=== PATIENT | female | born 1960 | race Caucasian/White ===

== ENCOUNTER 2022-09-10 06:33 | Emergency (ER) | payer MEDICARE, MEDICAID, SELFPAY ==
[2022-09-10] VITALS (12 sets, daily range): BP systolic 91–149; BP diastolic 67–89; PULSE 56–68; RESP 13–27; TEMP 36.8; O2SAT 73–100; BMI 37.0
--- NOTE | 2022-09-10 06:45 | ECG_ITS ---
The [facility] Test Date: 2022-09-10 Pat Name: Myrna Beverly Department: Room: - Gender: Female Cardiovascular Physician Assistant: : 1960 Requested By: Calin Hess Order Number: [id number] Reading MD: NATALIA GRADY Measurements Intervals [place] Rate: 69 P: 28 [place]: 148 QRS: -26 QRSD: 90 T: 106 QT: 386 QTc: 404 Interpretive Statements 1100 Sinus rhythm 5234 Left ventricular hypertrophy with repolarization abnormality 7202 Moderate left axis deviation 9150 abnormal ECG No previous ECG available for comparison Electronically Signed On 09-14-2022 7:41:06 EDT by NATALIA GRADY
--- NOTE | 2022-09-10 06:45 | CT_ITS ---
The [address] [address] Patient Name: PAULO CANTU MRN: [id number] date: 1960 Sex: F Assigned Patient Location: ER Current Patient Location: ED.MAIN Accession/Order Number: [id number] Exam Date: 09/10/2022 06:45 Report Date: 09/10/2022 06:57 At the request of: POOL KOLB Procedure: CT stroke head/brain wo con NONCONTRAST HEAD CT COMPARISON: Head CT 03/12/2019. CLINICAL HISTORY: Facial droop. TECHNIQUE: Routine noncontrast images of the brain obtained. CT examination of the head without IV contrast. Dose reduction techniques were achieved by using: automated exposure control and/or adjustment of mA and /or kV according to patient size and/or use of iterative reconstruction technique. FINDINGS: Paranasal sinuses and mastoid air cells are clear. Intraorbital contents are unremarkable. No acute bony abnormality. Intracranially, there is no evidence of hemorrhage, mass effect, or midline shift. Profound brain atrophy and extensive areas of cortical and periventricular ischemic change with previous large areas of presumed infarction in the left occipital lobe and right parietal lobe. Dense carotid calcifications.. IMPRESSION: No acute intracranial hemorrhage. Profound atrophy and extensive chronic ischemic changes are noted, overall stable exam since 2018. Electronically authenticated by: MALIA JULIEN Date: 09/10/2022 06:57
[2022-09-10 07:13] LABS: Glucometer 98 mg/dL (74-106)
[2022-09-10 07:15] LABS: Basophils Absolute Auto 0.1 10^3/uL (0.0-0.1); Basophils Percent Auto 0.7 % (0.2-2.0); Eosinophils Absolute Auto 0.1 10^3/uL (0.0-0.7); Eosinophils Percent Auto 0.6 % (0.9-7.0); Hematocrit 46.6 % (36.0-48.0); Hemoglobin 16.1 g/dL (12.0-16.0); Immature Granulocytes Abs Auto 0.04 10^3/uL (0.00-0.03); Immature Granulocytes Pct Auto 0.5 % (0.0-0.5); Lymphocytes Absolute Auto 0.7 10^3/uL (1.2-3.8); Lymphocytes Percent Auto 7.8 % (20.5-60.0); Mean Corpuscular HGB Conc 34.5 g/dL (29.9-35.2); Mean Corpuscular Hemoglobin 36.2 pg (26.7-34.0); Mean Corpuscular Volume 104.7 fL (81.0-99.0); Mean Platelet Volume 10.4 fL (9.5-13.5); Monocytes Absolute Auto 0.7 10^3/uL (0.3-0.8); Monocytes Percent Auto 7.5 % (1.7-12.0); Neutrophils Absolute Auto 7.3 10^3/uL (1.4-6.5); Neutrophils Percent Auto 82.9 % (43.0-75.0); Platelet Count 227 10^3/uL (150-450); Red Blood Count 4.45 10^6/uL (4.20-5.40); Red Cell Distribution Width 14.6 % (11.0-15.0); White Blood Count 8.8 10^3/uL (4.0-11.0)
--- NOTE | 2022-09-10 07:17 | XR_ITS ---
The [address] [address] Patient Name: PAULO CANTU MRN: [id number] date: 1960 Sex: F Assigned Patient Location: ER Current Patient Location: ER Accession/Order Number: [id number] Exam Date: 09/10/2022 07:50 Report Date: 09/10/2022 08:11 At the request of: DARYA OLSON Procedure: XR chest 1V EXAM: Chest x-ray HISTORY: . DYSPNEA . COMPARISON: 09/13/2021 TECHNIQUE: Single view of the chest. FINDINGS: This is an expiratory chest. Heart is mildly enlarged. Vascularity is unremarkable. There is atelectasis and or infiltrate in the left lung base along with a small left effusion. There is a small amount of atelectasis in the right lung base. Impression: 1. Expiratory chest. 2. Cardiac enlargement. 3. Atelectasis and or infiltrate in the left lower lobe along with a small left effusion. 4. Small amount of atelectasis in the right lung base. Electronically authenticated by: RICHARD WAYNE Date: 09/10/2022 08:11
--- NOTE | 2022-09-10 07:19 | ED_ITS ---
HPI - General Adult General Chief complaint: Neuro Symptoms/Deficit Stated complaint: CVA SYMPTOMS Time Seen by Provider: 09/10/22 06:45 Source: medical record and unable to obtain Mode of arrival: ambulance Limitations: language barrier, altered mental status and physical limitation History of Present Illness HPI narrative: Patient brought in via EMS from the [facility] with a complaint of shortness of breath. Patient has a history of Down syndrome and has right hemiplegia from a CVA for which she is at the [facility]. This states this morning she was found at 1 in the morning with vomitus on her face. They stated she was having difficulty breathing they give her 1 breathing treatment and called EMS. When EMS arrived he stated that they noted some facial drooping so the patient was taken to CT scan. Patient is not able to provide a history. Family Who is a nurse practitioner and POA arrives and states the patient is at her baseline. She does not have any signs of an acute CVA.States the patient does not exhibit any facial drooping and she has right-sided hemiplegia from the previous CVA. She also states that she did is not uncommon for the patient to vomit since she has an esophageal stricture that she was told can no longer be dilated. The patient is on a soft pur?ed diet. She states she was told yesterday that the patient had a fever and she asked to do the workup of x-ray and urinalysis at the facility presents she vomited they decided to send her here. The patient denies any abdominal pain. She is satting 92 percent, later nasal cannula. Related Data Home Medications Medication Instructions Recorded Confirmed cefdinir 250 mg/5 mL oral 300 mg PO Q12H 09/10/22 09/10/22 suspension Allergies Allergy/AdvReac Type Severity Reaction Status Date / Time atorvastatin [From Lipitor] Allergy Verified 09/10/22 06:57 Review of Systems ROS Status of ROS 10 or more systems reviewed and unremarkable except as noted in history and below Exam Narrative Exam Narrative: Nurses notes and vital signs reviewed and patient sat 92% on 1 L nc. General: Response to verbal stimuli, opens her eyes, answers simple questions, in no apparent distress. Skin: Warm, dry, no pallor noted. Neck and lower extremity intertriginous yeast rash, left gluteal pressure ulcer, no exudate. Head: Normocephalic, atraumatic. Neck: Supple, non-tender. Eye: Pupils are equal, round and EOMI. No scleral icterus. Ears, Nose, Mouth, and Throat: TM clear, no posterior oropharynx erythema or nasal mucosal hypertrophy, uvula is mid-line Oral mucosa is dry Cardiovascular: Regular Rate and Rhythm without murmur, gallop or rub. Respiratory: No accessory muscle use or respiratory distress. Lungs occasional bilateral rhonchi Chest Wall: no tenderness Back: No midline thoracic or lumbar vertebral tenderness. No CVA tenderness Musculoskeletal: normal ROM, no calf or popliteal tenderness, no lower extremity edema/swelling GI: Abdomen is soft, non-distended. Normal bowel sounds. No tenderness to palpation. No rebound, guarding, or rigidity noted. Neurological: A&O x1. Right-sided hemiparesis, no facial drooping, at baseline Psychiatric: Cooperative Constitutional Vital Signs - 24 hr 09/10/22 06:45 09/10/22 06:45 09/10/22 06:46 Temperature 98.2 F Pulse Rate Pulse Rate [Monitor] 68 Respiratory Rate 22 Blood Pressure 91/67 Blood Pressure [Right Arm] 149/89 H Pulse Oximetry 96 92 L 96 Oxygen Delivery Method Nasal Cannula Nasal Cannula Oxygen Delivery Flow Rate 0.5 2 09/10/22 06:46 09/10/22 06:49 09/10/22 06:52 Temperature Pulse Rate 67 66 Pulse Rate [Monitor] Respiratory Rate 18 23 Blood Pressure 149/89 H 141/67 H Blood Pressure [Right Arm] Pulse Oximetry 96 96 96 Oxygen Delivery Method Oxygen Delivery Flow Rate 09/10/22 07:00 09/10/22 07:31 09/10/22 08:00 Temperature Pulse Rate 61 61 58 L Pulse Rate [Monitor] Respiratory Rate 18 20 16 Blood Pressure 144/84 H 126/68 H 127/77 H Blood Pressure [Right Arm] Pulse Oximetry 96 85 L 98 Oxygen Delivery Method Oxygen Delivery Flow Rate 09/10/22 08:15 09/10/22 08:30 09/10/22 09:00 Temperature Pulse Rate 57 L 56 L 63 Pulse Rate [Monitor] Respiratory Rate 27 H 19 21 Blood Pressure 117/69 126/73 H 135/69 H Blood Pressure [Right Arm] Pulse Oximetry 73 L 100 Oxygen Delivery Method Oxygen Delivery Flow Rate 09/10/22 09:00 09/10/22 09:30 09/10/22 09:34 Temperature Pulse Rate 62 59 L Pulse Rate [Monitor] Respiratory Rate 17 13 Blood Pressure 135/69 H 145/67 H Blood Pressure [Right Arm] Pulse Oximetry 94 L 97 Oxygen Delivery Method Room Air Oxygen Delivery Flow Rate Course Vital Signs Vital signs: Vital Signs Temperature 98.2 F 09/10/22 06:45 Pulse Rate 68 09/10/22 06:45 Respiratory Rate 22 09/10/22 06:45 Blood Pressure 149/89 H 09/10/22 06:45 Pulse Oximetry 96 09/10/22 06:45 Oxygen Delivery Method Nasal Cannula 09/10/22 06:45 Oxygen Delivery Flow Rate 0.5 09/10/22 06:45 Temperature 98.2 F 09/10/22 06:45 Pulse Rate 59 L 09/10/22 09:30 Respiratory Rate 13 09/10/22 09:30 Blood Pressure 145/67 H 09/10/22 09:30 Pulse Oximetry 97 09/10/22 09:34 Oxygen Delivery Method Room Air 09/10/22 09:34 Oxygen Delivery Flow Rate 2 09/10/22 06:45 Medical Decision Making MDM Narrative Medical decision making narrative: Patient was given IV fluids, and Rocephin. Patient is at her baseline. Family states the patient is a DNRCC arrest. She has been on oxygen before at the [facility]. She also uses a BiPAP at times. Patient states she does not want to use that. pt is able to receive antibiotics and oxygen at the [facility]. She will be discharged back to the [facility]. Will be given a prescription for Omnicef. At this time the patient is without objective evidence of an acute process requiring hospitalization or inpatient management. The patient has remained hemodynamically stable. No additional indication for emergent studies at this time. I answered all questions. Discussed discharge instructions including s tandard anticipatory guidance and what should prompt a return to the emergency department, including if they get worse are not getting better or develops any new or concerning symptoms. I've given them specific time frame in which to follow-up, and who to follow-up with. The patient demonstrates understanding. Patient is nontoxic and stable for discharge with outpatient follow-up. This note was created with the assistance of a speech recognition program. Although the intention is to generate documents that actually reflects the content of the visit, no guarantees can be provided that every mistake has been identified and corrected by editing. Medical Records Medical records reviewed: Yes I reviewed the patient's medical records Lab Data Lab results reviewed: Yes I reviewed the patient's lab results Labs: Lab Results 09/10/22 09/10/22 09/10/22 Range/Units 06:58 07:05 08:45 WBC 8.8 (4.0-11.0) 10^3/uL RBC 4.45 (4.20-5.40) 10^6/uL Hgb 16.1 H (12.0-16.0) g/dL Hct 46.6 (36.0-48.0) % MCV 104.7 H (81.0-99.0) fL MCH 36.2 H (26.7-34.0) pg MCHC 34.5 (29.9-35.2) g/dL RDW 14.6 (11.0-15.0) % Plt Count 227 (150-450) 10^3/uL MPV 10.4 (9.5-13.5) fL Neut % (Auto) 82.9 H (43.0-75.0) % Lymph % (Auto) 7.8 L (20.5-60.0) % [place] % (Auto) 7.5 (1.7-12.0) % Eos % (Auto) 0.6 L (0.9-7.0) % Baso % (Auto) 0.7 (0.2-2.0) % Neut # (Auto) 7.3 H (1.4-6.5) 10^3/uL Lymph # (Auto) 0.7 L (1.2-3.8) 10^3/uL [place] # (Auto) 0.7 (0.3-0.8) 10^3/uL Eos # (Auto) 0.1 (0.0-0.7) 10^3/uL Baso # (Auto) 0.1 (0.0-0.1) 10^3/uL Abs Immat Gran (auto) 0.04 H (0.00-0.03) 10^3/uL Imm/Tot Granulo (auto) 0.5 (0.0-0.5) % PT 11.2 (9.0-11.6) sec INR 1.06 APTT 26.7 (22.3-36.2) sec Sodium 145 (136-145) mmol/L Potassium 4.0 (3.5-5.1) mmol/L Chloride 113 H (98-107) mmol/L Carbon Dioxide 24.4 (21.0-32.0) mmol/L Anion Gap 11.6 BUN 24.0 H (7.0-18.0) mg/dL Creatinine 1.39 H (0.55-1.02) mg/dL Est GFR ( Amer) 46 L (>=60) Est GFR (Non-Af Amer) 38 L (>=60) BUN/Creatinine Ratio 17.3 Glucose 114 H (74-106) mg/dL Lactate 1.5 (0.4-2.0) mmol/L Calcium 8.4 L (8.5-10.1) mg/dL Total Bilirubin 0.5 (0.2-1.0) mg/dL AST 35 (15-37) U/L ALT 27 (14-59) U/L Alkaline Phosphatase 72 (46-116) U/L Troponin I High Sens 23.3 (4.0-51.3) pg/mL NT-Pro-B Natriuret Pep 144.0 (<=900.0) pg/mL Total Protein 6.5 (6.4-8.2) g/dL Albumin 2.5 L (3.4-5.0) g/dL Globulin 4.0 g/dL Albumin/Globulin Ratio 0.6 Urine Color Yellow (YELLOW) Urine Clarity Clear (CLEAR) Urine pH 6.0 (5.0-9.0) Ur Specific [place] 1.025 (1.005-1.025) Urine Protein Trace (NEG/TRACE) mg/dL Urine Glucose (UA) Negative (NEGATIVE) mg/dL Urine Ketones Negative (NEGATIVE) mg/dL Urine Occult Blood Negative (NEGATIVE) Urine Nitrite Negative (NEGATIVE) Urine Bilirubin Negative (NEGATIVE) Urine Urobilinogen 1.0 (0.2-1.0) EU/dL Ur Leukocyte Esterase Trace A (NEGATIVE) Urine RBC (0-2) #/HPF Urine WBC (NONE SEEN) #/HPF Ur Squamous Epith Cells (NONE/RARE) #/LPF Urine Crystals (None Seen) #/HPF Urine Bacteria (NONE SEEN) #/HPF Urine Casts (NONE SEEN) #/LPF Urine Mucus (NONE SEEN) Ur Culture Indicated? POC Glucose 98 (74-106) mg/dL 09/10/22 Range/Units 09:03 WBC (4.0-11.0) 10^3/uL RBC (4.20-5.40) 10^6/uL Hgb (12.0-16.0) g/dL Hct (36.0-48.0) % MCV (81.0-99.0) fL MCH (26.7-34.0) pg MCHC (29.9-35.2) g/dL RDW (11.0-15.0) % Plt Count (150-450) 10^3/uL MPV (9.5-13.5) fL Neut % (Auto) (43.0-75.0) % Lymph % (Auto) (20.5-60.0) % [place] % (Auto) (1.7-12.0) % Eos % (Auto) (0.9-7.0) % Baso % (Auto) (0.2-2.0) % Neut # (Auto) (1.4-6.5) 10^3/uL Lymph # (Auto) (1.2-3.8) 10^3/uL [place] # (Auto) (0.3-0.8) 10^3/uL Eos # (Auto) (0.0-0.7) 10^3/uL Baso # (Auto) (0.0-0.1) 10^3/uL Abs Immat Gran (auto) (0.00-0.03) 10^3/uL Imm/Tot Granulo (auto) (0.0-0.5) % PT (9.0-11.6) sec INR APTT (22.3-36.2) sec Sodium (136-145) mmol/L Potassium (3.5-5.1) mmol/L Chloride (98-107) mmol/L Carbon Dioxide (21.0-32.0) mmol/L Anion Gap BUN (7.0-18.0) mg/dL Creatinine (0.55-1.02) mg/dL Est GFR ( Amer) (>=60) Est GFR (Non-Af Amer) (>=60) BUN/Creatinine Ratio Glucose (74-106) mg/dL Lactate (0.4-2.0) mmol/L Calcium (8.5-10.1) mg/dL Total Bilirubin (0.2-1.0) mg/dL AST (15-37) U/L ALT (14-59) U/L Alkaline Phosphatase (46-116) U/L Troponin I High Sens (4.0-51.3) pg/mL NT-Pro-B Natriuret Pep (<=900.0) pg/mL Total Protein (6.4-8.2) g/dL Albumin (3.4-5.0) g/dL Globulin g/dL Albumin/Globulin Ratio Urine Color (YELLOW) Urine Clarity (CLEAR) Urine pH (5.0-9.0) Ur Specific [place] (1.005-1.025) Urine Protein (NEG/TRACE) mg/dL Urine Glucose (UA) (NEGATIVE) mg/dL Urine Ketones (NEGATIVE) mg/dL Urine Occult Blood (NEGATIVE) Urine Nitrite (NEGATIVE) Urine Bilirubin (NEGATIVE) Urine Urobilinogen (0.2-1.0) EU/dL Ur Leukocyte Esterase (NEGATIVE) Urine RBC None seen (0-2) #/HPF Urine WBC 50-75 A (NONE SEEN) #/HPF Ur Squamous Epith Cells Moderate A (NONE/RARE) #/LPF Urine Crystals None seen (None Seen) #/HPF Urine Bacteria Moderate A (NONE SEEN) #/HPF Urine Casts None seen (NONE SEEN) #/LPF Urine Mucus Moderate A (NONE SEEN) Ur Culture Indicated? Yes POC Glucose (74-106) mg/dL ECG Data Attestation: I personally reviewed and interpreted this ECG as follows: (Sinus rhythm of 69 bpm, left ventricular hypertrophy, left axis deviation, no acute ischemic changes) Discharge Plan Discharge Chief Complaint: Neuro Symptoms/Deficit Clinical Impression: UTI (urinary tract infection), Nausea and vomiting, Pneumonia Patient Disposition: [facility] Time of Disposition Decision: 09:18 Discharge Location: [facility] Condition: Good Mode of Transportation: EMS Instructions: Urinary Tract Infection in Women (ED), Pneumonia (ED) Stand Alone Forms: Portal Instructions Referrals: JAYSHREE GARDNER DO [Primary Care Provider] - 1 week Discharge Date/Time: 09/10/22 11:33
[2022-09-10] MEDS: ONDANSETRON PF 4 MG/2 ML VIAL IV (07:30)
[2022-09-10 07:38] LABS: Alanine Aminotransferase 27 U/L (14-59); Albumin Globulin Ratio 0.6; Albumin Level 2.5 g/dL (3.4-5.0); Alkaline Phosphatase 72 U/L (46-116); Anion Gap 11.6; Aspartate Amino Transferase 35 U/L (15-37); BUN Creatinine Ratio 17.3; Bilirubin Total 0.5 mg/dL (0.2-1.0); Calcium 8.4 mg/dL (8.5-10.1); Carbon Dioxide 24.4 mmol/L (21.0-32.0); Chloride 113 mmol/L (98-107); Estimated GFR (African America 46 (>=60); Estimated GFR (Non-African Ame 38 (>=60); Glucose 114 mg/dL (74-106); Sodium 145 mmol/L (136-145); Total Protein 6.5 g/dL (6.4-8.2); Troponin I High Sensitivity 23.3 pg/mL (4.0-51.3)
[2022-09-10 07:49] LABS: Lactate/Lactic Acid 1.5 mmol/L (0.4-2.0)
[2022-09-10 07:52] LABS: INR 1.06; Partial Thromboplastin Time 26.7 sec (22.3-36.2); Prothrombin Time 11.2 sec (9.0-11.6)
[2022-09-10] MEDS: 0.9 % SODIUM CHLORIDE 1,000 ML 999 ML IV (08:05)
[2022-09-10 09:01] LABS: Bilirubin Urine NEGATIVE (NEGATIVE); Blood Urine NEGATIVE (NEGATIVE); Clarity Urine CLEAR (CLEAR); Color Urine YELLOW (YELLOW); Glucose Urine UA NEGATIVE (NEGATIVE); Ketones Urine NEGATIVE (NEGATIVE); Leukocyte Esterase Urine TRACE (NEGATIVE); Nitrite Urine NEGATIVE (NEGATIVE); Protein Urine TRACE mg/dL (NEG/TRACE); Specific Gravity Urine 1.025 (1.005-1.025)
[2022-09-10 09:03] LABS: Urine Microscopic Indicated YES
[2022-09-10 09:09] LABS: Bacteria Urine MODERATE #/HPF (NONE SEEN); RBC Urine NONE SEEN #/HPF (0-2); WBC Urine 50-75 #/HPF (NONE SEEN)
[2022-09-10 09:10] LABS: Mucus Urine MODERATE (NONE SEEN); Squamous Epithelial Cell Urine MODERATE #/LPF (NONE/RARE)
[2022-09-10 09:11] LABS: Cast Seen? NONE SEEN #/LPF (NONE SEEN); Crystals Seen? None Seen #/HPF (None Seen); Urine Culture Indicated YES
[2022-09-10] MEDS: CEFTRIAXONE 1,000 MG in 0.9 % SODIUM CHLORIDE 50 ML 100 MG IV (09:26)
[2022-09-11 10:32] LABS: A. calcoaceticus-baumannii Cpx NOT DETECTED (NOT DETECTE); Bacteroides fragilis NOT DETECTED (NOT DETECTE); CTX-M NOT DETECTED (NOT DETECTE); Candida albicans NOT DETECTED (NOT DETECTE); Candida auris NOT DETECTED (NOT DETECTE); Candida glabrata NOT DETECTED (NOT DETECTE); Candida krusei NOT DETECTED (NOT DETECTE); Candida parapsilosis NOT DETECTED (NOT DETECTE); Candida tropicalis NOT DETECTED (NOT DETECTE); Cryptococcus neoformans/gattii NOT DETECTED (NOT DETECTE); Enterobacter cloacae complex NOT DETECTED (NOT DETECTE); Enterobacterales NOT DETECTED (NOT DETECTE); Enterococcus faecalis NOT DETECTED (NOT DETECTE); Enterococcus faecium NOT DETECTED (NOT DETECTE); Haemophilus influenzae NOT DETECTED (NOT DETECTE); IMP NOT DETECTED (NOT DETECTE); KPC NOT DETECTED (NOT DETECTE); Klebsiella aerogenes NOT DETECTED (NOT DETECTE); Klebsiella pneumoniae group NOT DETECTED (NOT DETECTE); Listeria monocytogenes NOT DETECTED (NOT DETECTE); NDM NOT DETECTED (NOT DETECTE); Neisseria meningitidis NOT DETECTED (NOT DETECTE); OXA-48-like NOT DETECTED (NOT DETECTE); Proteus spp. NOT DETECTED (NOT DETECTE); Pseudomonas aeruginosa NOT DETECTED (NOT DETECTE); Salmonella spp. NOT DETECTED (NOT DETECTE); Serratia marcescens NOT DETECTED (NOT DETECTE); Staphylococcus lugdunensis NOT DETECTED (NOT DETECTE); Stenotrophomonas maltophilia NOT DETECTED (NOT DETECTE); Streptococcus agalactiae NOT DETECTED (NOT DETECTE); Streptococcus pneumoniae NOT DETECTED (NOT DETECTE); Streptococcus pyogenes NOT DETECTED (NOT DETECTE); Streptococcus spp. NOT DETECTED (NOT DETECTE); VIM NOT DETECTED (NOT DETECTE); mcr-1 NOT DETECTED (NOT DETECTE); mecA/C and MREJ (MRSA) NOT DETECTED (NOT DETECTE); vanA/B NOT DETECTED (NOT DETECTE)
[2022-09-11 11:50] LABS: mecA/C DETECTED (NOT DETECTE)
[2022-09-11 11:51] LABS: Staphylococcus epidermidis DETECTED (NOT DETECTE); Staphylococcus spp. DETECTED (NOT DETECTE)
--- NOTE | 2022-09-11 18:29 | PC.NURSE ---
POSITIVE BLOOD CULTURES RESULTS CALLED TO MARINA CHARLES AT [facility] AND FAXED TO NUMBER PROVIDED [phone]
== END 2022-09-10 11:33 ==
PROVIDERS: Emergency Medicine; Emergency Provider Emergency Medicine; PCP Family Medicine
DX: J18.9 Pneumonia, unspecified organism (principal); N39.0 Urinary tract infection, site not specified; R11.2 Nausea with vomiting, unspecified; Q90.9 Down syndrome, unspecified; I69.951 Hemiplegia and hemiparesis following unspecified cerebrovascular disease affecting right dominant side; Z66 Do not resuscitate
CPT/HCPCS: 36415; 70450; 71045; 80053; 81003; 81015; 83605; 83880; 84484; 85025; 85610; 85730; 87040; 87086; 87150; 87186; 93005; 96374; 96375; 99285